=== PATIENT | female | born 1965 | race Two or more races ===

== ENCOUNTER 2018-06-11 10:15 | Outpatient (CLI) | payer OTHER | END 2018-06-11 10:16 | disposition home or self-care (01) | LOC: SONOGRAMA 10:15 | DX: E04.1 Nontoxic single thyroid nodule (principal) ==

== ENCOUNTER 2018-11-30 09:58 | Outpatient (CLI) | payer OTHER | END 2018-11-30 10:48 | disposition home or self-care (01) | LOC: SONOGRAMA 09:58 | DX: R22.2 Localized swelling, mass and lump, trunk (principal) ==

== ENCOUNTER 2020-11-02 10:07 | Outpatient (CLI) | payer OTHER | END 2020-11-02 10:34 | disposition home or self-care (01) | LOC: SONOGRAMA 10:07 | PROVIDERS: ATTEND Pathology Anatomic Pathology & Clinical Pathology | DX: E04.1 Nontoxic single thyroid nodule (principal) ==